=== PATIENT | female | born 1950 | race Caucasian/White ===

== ENCOUNTER → 2018-08-06 | Outpatient (CLI) | payer OTHER | LOC: M.RAD 08-02 10:22 | DX: Z12.31 Encounter for screening mammogram for malignant neoplasm of breast (principal); M85.89 Other specified disorders of bone density and structure, multiple sites; M81.0 Age-related osteoporosis without current pathological fracture; Z90.710 Acquired absence of both cervix and uterus; Z90.722 Acquired absence of ovaries, bilateral ==

== ENCOUNTER → 2018-08-15 | Outpatient (CLI) | payer OTHER | LOC: M.ULTRA 14:48 | DX: N63.10 Unspecified lump in the right breast, unspecified quadrant (principal); N63.41 Unspecified lump in right breast, subareolar; N63.20 Unspecified lump in the left breast, unspecified quadrant ==

== ENCOUNTER → 2018-08-20 | Outpatient (CLI) | payer OTHER ==
--- NOTE | 2018-08-24 12:05 | PATH ---
[address] [address] PATHOLOGY RPT PROCEDURE Name: SOLEDAD ZHAO Room: [facility] DALE Romero#: [id number] Admission: 08/20/18 Date of : 54 Discharge: Report #: [id number] Path Case #: [id number] [facility] Accession Number: [id number] . 01 Material submitted: . RIGHT BREAST . 01 Clinical history: . 0.95 x 0.58 x 0.79 cm subareolar 6:00 . 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 . (TAI:rip; 08/23/2018) QMS/08/23/2018 . 02 Comment: The p63 and p40 immunoperoxidase stains show presence of a myeloepithelial cell layer around the lesion in block A2. . Review/Concur: Dr. Bobby (SKM:rip; 08/23/2018) . 02 Electronically signed: . Gino Lester MD, Pathologist NPI- [id number] . 01 Gross description: . The specimen is received in formalin, labeled "Soledad Zhao, right breast 6:00", are few fibrofatty cores measuring 2.4 x 1.7 x 0.5 cm in aggregate. The specimen is entirely submitted in A1-A3. The specimen was excised at: 0931 on 08/20/18, placed in formalin at 0934 on 08/20/18, formalin exposure: Approximately 14 hours 8 minutes. (SWS; 08/20/2018) SHS/SHS . 02 Pathologist provided ICD-10: D24.1 . 02 CPT . 378030 Specimen Comment: A courtesy copy of this report has been sent to Specimen Comment: [phone], , . Specimen Comment: Report sent to ,DR WHITLOCK / DR BILLINGSLEY Specimen Comment: A duplicate report has been generated [place] [address] PATHOLOGY RPT PROCEDURE Name: SOLEDAD ZHAO Room: [facility]#: [id number] Admission: 08/20/18 Date of : 54 Discharge: Report #: [id number] Path Case #: [id number] Performed at: 01 [facility] [address] [id number] MD Jostin Linda MD Phone: [phone] Performed at: 02 [facility] [address] [id number] MD Gorge Perez MD Phone: [phone]
== END | disposition home or self-care (01) ==
LOC: M.ULTRA 08:24
DX: N63.0 Unspecified lump in unspecified breast (principal); R92.0 Mammographic microcalcification found on diagnostic imaging of breast; I25.10 Atherosclerotic heart disease of native coronary artery without angina pectoris

== ENCOUNTER → 2018-09-21 | Day surgery (SDC) | payer OTHER ==
[~2018-09-21] MED LIST: LIPITOR 20 MG T20 M1 PO; NORCO 5-325 TA1 EACH PO; RECLAST 55 MG/100 M IV; SYNTHROID100 MC1 PO
--- NOTE | ~2018-09-21 | OP ---
[facility] [address] [place] [address] OPERATIVE REPORT Name: ZHAOTJ JOAN Room: [facility].#: [id number] Admission: 09/21/18 Attend Phys: Sheryl Sims MD Discharge: Date of : 54 Report #: [id number] THIS REPORT FOR: //name// CC: Prudence Sims DATE OF SERVICE: 09/21/2018 PREOPERATIVE DIAGNOSIS: Right breast papilloma. POSTOPERATIVE DIAGNOSIS: Right breast papilloma. PROCEDURE: Right breast needle localized excision of papilloma. SURGEON: Sheryl Sims M.D. PURSE SEINING HAND: SARAH Barth. COMPLICATIONS: None. FINDINGS: Incision, 4 cm in length, 2 cm from the nipple, 8 o'clock position, periareolar. Clip in the lesion in the mammographic specimen. INDICATIONS: The patient is a 68-year-old female with imaging, 08/06/2018 and 08/15/2018, showing a 1 cm irregular, lobulated, solid mass at the lower outer subareolar right breast. A biopsy on 08/20/2018 showed intraductal papilloma. We discussed that definitive excision of intraductal papilloma is recommended. Risks and benefits for excision were discussed with the patient and delineated in the H and P and she agreed to proceed. DESCRIPTION OF PROCEDURE: The patient was brought to the operating room, after informed consent had been obtained. She was placed under general anesthesia in the supine position with the right arm extended. Her right breast was prepped and draped in normal sterile manner. Prior to skin incision, a combination of 1% lidocaine plain and 0.5% Marcaine with epinephrine was used. A periareolar skin incision was made with a knife. This was deepened in the subcutaneous tissue using the Bovie electrocautery. Path was created toward the wire entrance site. The wire was identified, grasped with 2 hemostats and brought into the incision. The Bovie electrocautery was then used to excise the lump of tissue surrounding the pathway of the wire and the palpable mass. Once completely removed, it was labeled for orientation purposes and placed in the mammographic specimen tray and handed off for mammographic evaluation. Mammogram did confirm that the clip in the lesion was indeed within the mammographic specimen. The wound bed was examined and noted to be adequately hemostatic. It was copiously irrigated with normal saline. The deeper tissues were reapproximated with interrupted 3-0 Vicryl sutures[place] [address] OPERATIVE REPORT Name: TJ ZHAO Room: [facility].#: [id number] Admission: 09/21/18 Attend Phys: Sheryl Sims MD Discharge: Date of : 54 Report #: [id number] were closed with interrupted 3-0 Vicryl sutures and skin was closed with 4-0 Monocryl in a subcuticular manner. The wound was dressed with Dermabond dressing. The patient tolerated the procedure well. Sponge, lap and needle counts were correct x 2 at the end of procedure. She was transferred to recovery in stable condition. By: 1033 1102Mincallie Sims MD /nt
[2018-09-21 08:06] LABS: HEMATOCRIT 42.1 % (37.0-47.0); HEMOGLOBIN 14.2 gm/dL (12.0-15.0); MCH 30.2 pg (26.0-34.0); MCHC 33.6 g/dL (28.0-37.0); MCV 89.9 fL (80.0-100.0); MPV 9.8 fl. (7.2-11.1); RBC 4.69 mil/uL (4.20-5.00); RDW-CV 13.1 % (10.5-14.5); WBC 10.4 thou/uL (4.0-11.0)
[2018-09-21 08:19] LABS: ALBUMIN 3.9 g/dL (3.4-5.0); CREATININE 0.7 mg/dL (0.6-1.3); TOTAL BILIRUBIN 1.3 mg/dL (<0.1-1.0); TOTAL PROTEIN 7.2 g/dL (6.4-8.2)
--- NOTE | 2018-09-21 09:16 | EKG ---
[place] [address] ELECTROCARDIOGRAM REPORT Name: TJ ZHAO Room: [facility]#: [id number] Admission: 09/21/18 Attend Phys: Sheryl Sims MD Discharge: Date of : 54 Report #: [id number] THIS REPORT FOR: //name// [facility] Test Date: 2018-09-21 Test Time: 07:57:45 Pat Name: TJ ZHAO Department: Room: Gender: F Control Officer: : 1950 Requested By: Sheryl Sims Order Number: [id number] Reading MD: Ac Ross Measurements Intervals [place] Rate: 63 P: -15 TX: 151 QRS: 5 QRSD: 85 T: 22 QT: 411 QTc: 421 Interpretive Statements Sinus rhythm Borderline T wave abnormalities No previous ECG available for comparison Electronically Signed On 09-21-2018 9:16:04 CDT by Ac Ross [email or web address] <ELECTRONICALLY SIGNED> By: Ac Ross MD, [facility] 09/21/18 0916 0757 [id number] Ac Ross MD, FACC /EPI
--- NOTE | 2018-09-25 11:08 | PATH ---
[address] [address] PATHOLOGY RPT PROCEDURE Name: SOLEDAD ZHAO Room: [facility] M.R.#: [id number] Admission: 09/21/18 Date of : 54 Discharge: Report #: [id number] Path Case #: [id number] [facility] Accession Number: [id number] . 01 Material submitted: . RIGHT BREAST PAPILLOMA . 01 Clinical history: . Right breast intraductal papilloma. . 02 Diagnosis: Right breast intraductal papilloma: - Focal residual ductal papilloma in association with changes of prior biopsy, negative for atypia. See comment. (MICHAEL:pit 09/24/2018) QTP/09/24/2018 . 02 Comment: A small focus of residual ductal papilloma is seen at the edge of a prominent biopsy site in A3 and appears completely excised. (MICHAEL:pit 09/24/2018) . 02 Addendum: . Abundant calcifications are noted in associated with the focus of residual papilloma. The original diagnosis remains unchanged. (MICHAEL/db; 09/24/2018) . . Professional services performed by [facility] at [facility], [address] [place] [address]. Technical services performed at [address] [place] [address], [address] [address]. LBQ/09/24/2018 Addendum Electronically Signed by Benny Berger MD, Pathologist . 02 Electronically signed: . Benny Berger MD, Pathologist NPI- [id number] . 01 Gross description: . Received in formalin labeled "Soledad Zhao, right breast papilloma suture bunch long lateral short superior double deep" is an oriented breast lumpectomy specimen which measures 3.2 cm from superior to inferior, 2.1 cm from medial to lateral, and 0.9 cm from superficial to deep. The specimen is inked as follows: Superior-red, inferior-blue, anterior-green, posterior-black, lateral-orange, medial-yellow. The specimen is serially sectioned from superior to inferior into 9 slices. Present within slices 3-9 is a rivera-pink firm possible lesion measuring 2.5 x 1.2 x 0.6 cm. The possible lesion is located 0.7 cm from superior, [place] [id number] PATHOLOGY RPT PROCEDURE Name: SOLEDAD ZHAO [id number] Admission: 09/21/18 Date of : 54 Discharge: Report #: [id number] Path Case #: [id number] grossly abuts inferior, grossly abuts posterior, grossly abuts anterior, grossly abuts lateral, and is 0.3 cm from medial. A possible biopsy site is located in slices 3-4. A biopsy clip is not grossly identified. The uninvolved breast tissue is yellow and lobulated. The specimen is submitted entirely as follows: A1 slice 1, superior margin, perpendicular sections A2 slices 2-3 A3 slice 4 A4 slices 5-6 A5 slices 7-8 A6 slice 9, inferior margin, perpendicular sections The specimen is removed from the patient at 1010 and placed in formalin at 1026 on September 21, 2018. The specimen is removed from formalin at 1850 on September 23, 2018. ([facility]; 09/21/2018) SYC/SYC . 02 Pathologist provided ICD-10: D24.1 . 02 CPT . 337907 Specimen Comment: A courtesy copy of this report has been sent to Specimen Comment: [phone], . Specimen Comment: Report sent to / DR BILLINGSLEY Specimen Comment: A duplicate report has been generated due to demographic updates. Performed at: 01 [facility] [address], [place] [id number] MD Jostin Linda MD Phone: [phone] Performed at: 02 [facility] [address], [place], [place] [id number] MD Benny Berger MD Phone: [phone]
== END | disposition home or self-care (01) ==
LOC: M.SUR 07:24 → M.RAD 08:00 → EDSTATUS 08:00
PROVIDERS: Surgery
DX: D24.1 Benign neoplasm of right breast (principal); E03.9 Hypothyroidism, unspecified; E78.5 Hyperlipidemia, unspecified; F41.9 Anxiety disorder, unspecified; Z88.0 Allergy status to penicillin; Z90.710 Acquired absence of both cervix and uterus; Z98.890 Other specified postprocedural states; Z79.899 Other long term (current) drug therapy; Z82.49 Family history of ischemic heart disease and other diseases of the circulatory system; Z83.3 Family history of diabetes mellitus; Z80.3 Family history of malignant neoplasm of breast; Z80.1 Family history of malignant neoplasm of trachea, bronchus and lung; Z82.3 Family history of stroke

== ENCOUNTER → 2019-03-05 | Outpatient (CLI) | payer OTHER | LOC: M.RAD 09:40 | DX: R92.8 Other abnormal and inconclusive findings on diagnostic imaging of breast (principal) ==

== ENCOUNTER → 2019-07-02 | Outpatient (CLI) | payer OTHER ==
--- NOTE | 2019-07-02 14:26 | EKG ---
[place] [address] ELECTROCARDIOGRAM REPORT Name: LAURA ZHAOLIS Sveta Room: [facility]#: [id number] Admission: 07/02/19 Attend Phys: Takedria. JESSEE Fuentes Discharge: Date of : 54 Report #: [id number] THIS REPORT FOR: //name// [facility] Test Date: 2019-07-02 Test Time: 12:41:09 Pat Name: TJ ZHAO Department: Room: Gender: F Special Services Agent: : 1950 Requested By: Takedria. Nicole Order Number: [id number] Dionna MD: Ac Ross Measurements Intervals [place] Rate: 64 P: -11 [place]: 141 QRS: 10 QRSD: 84 T: 11 QT: 413 QTc: 426 Interpretive Statements Sinus rhythm Compared to ECG 09/21/2018 07:57:45 T-wave abnormality no longer present Electronically Signed On 07-02-2019 14:25:55 CASH REGISTER OPERATOR by Ac Ross [email or web address] <ELECTRONICALLY SIGNED> By: Ac Ross MD, [facility] 07/02/19 1425 1241 1241 Ac Ross MD, FACC /EPI
== END ==
LOC: M.CRD 12:17
DX: R07.9 Chest pain, unspecified (principal)

== ENCOUNTER → 2019-07-17 | Outpatient (CLI) | payer OTHER | LOC: M.ULTRA 09:23 | DX: K80.20 Calculus of gallbladder without cholecystitis without obstruction (principal); R16.0 Hepatomegaly, not elsewhere classified; R94.5 Abnormal results of liver function studies ==

== ENCOUNTER → 2019-07-18 | Outpatient (CLI) | payer OTHER ==
[2019-07-18 11:23] LABS: CREATININE 0.6 mg/dL (0.6-1.3)
== END ==
LOC: M.CT 10:42
PROVIDERS: Family Medicine
DX: K80.20 Calculus of gallbladder without cholecystitis without obstruction (principal); N28.89 Other specified disorders of kidney and ureter; K57.30 Diverticulosis of large intestine without perforation or abscess without bleeding; Z90.710 Acquired absence of both cervix and uterus

== ENCOUNTER → 2019-07-25 | Outpatient (CLI) | payer OTHER ==
[2019-07-25] VITALS (7 sets, daily range): BP systolic 164–215; BP diastolic 80–114
[~2019-07-25] VITALS: Ht 157.5 cm; Wt 57.2 kg
[~2019-07-25] MED LIST changes: +DEXILANT60 MG PO
[2019-07-25 09:47] LABS: ABSOLUTE BASOPHILS 0.1 thou/uL (0.0-0.2); ABSOLUTE MONOCYTES 0.7 thou/uL (0.0-1.2); ABSOLUTE NEUTROPHILS 7.7 thou/uL (1.6-8.1); BASOPHILS 0.7 %; EOSINOPHILS 0.3 %; HEMATOCRIT 40.3 % (37.0-47.0); HEMOGLOBIN 13.7 gm/dL (12.0-15.0); LYMPHOCYTES 19.3 %; MCH 29.8 pg (26.0-34.0); MCV 87.6 fL (80.0-100.0); MONOCYTES 6.3 %; MPV 9.5 fl. (7.2-11.1); NUCLEATED RBCS 0 /100WBC; PLATELET COUNT* 297 thou/uL (150-400); POLYS 73.4 %; RBC 4.59 mil/uL (4.20-5.00); RDW-CV 13.6 % (10.5-14.5); WBC 10.5 thou/uL (4.0-11.0)
[2019-07-25 10:00] LABS: APTT 24.8 Seconds (25.0-31.3); PROTIME 10.5 Seconds (9.20-11.50)
[2019-07-25 10:03] LABS: ALBUMIN 3.9 g/dL (3.4-5.0); CREATININE 0.7 mg/dL (0.6-1.3); POTASSIUM 3.9 mmol/L (3.5-5.1); TOTAL BILIRUBIN 1.5 mg/dL (<0.1-1.0); TOTAL PROTEIN 7.6 g/dL (6.4-8.2)
--- NOTE | 2019-07-31 15:07 | PATH ---
[address] [address] PATHOLOGY RPT PROCEDURE Name: TJ ZHAO Room: [facility] DALE Romero#: [id number] Admission: 07/25/19 Date of : 54 Discharge: Report #: [id number] Path Case #: [id number] [facility] Accession Number: [id number] . 01 Material submitted: . liver - LIVER MASS BX . 01 Clinical history: . Liver mass. . 02 Diagnosis: Liver mass, image guided core biopsies: - ADENOCARCINOMA, MODERATE TO POORLY DIFFERENTIATED, MOST CONSISTENT WITH CHOLANGIOCARCINOMA, INVOLVING LIVER. (SEE COMMENT) . (MICHAEL:rip/mmlorenza; 07/30/2019) QMS 07/31/2019 1020 Local . 02 Comment: Multiple cores show malignancy including areas of gland formation and associated with desmoplastic stroma as well as tumor necrosis. No significant liver parenchyma is present, although scattered non-dysplastic bile ducts are seen within fibrous stroma. A panel of properly controlled immunohistochemical studies are performed on A1 with results as follows: . PAX8: Negative CDX2: Negative CK7: Positive CK20: Negative TTF-1: Negative Estrogen receptor: Negative HepPar1: Negative GATA3: Negative CEAp: Positive CK19: Positive . Properly-controlled Mucicarmine and Alcian blue/PAS stains highlight mucin within lumina formed by the neoplastic cells. . The constellation of clinical and immunohistochemical studies best support cholangiocarcinoma. . Preliminary findings discussed with Dr. Prudence Leiva on the afternoon of 07/30/2019 and final results discussed at approximately 1020 on 07/31/2019. . Reviewed with Dr. Kong Lester [place] [address] PATHOLOGY RPT PROCEDURE Name: TJ ZHAO Room: [facility]#: [id number] Admission: 07/25/19 Date of : 54 Discharge: Report #: [id number] Path Case #: [id number] . (MICHAEL:[facility]; 07/30/2019) . 02 Electronically signed: . Benny Berger MD, Pathologist NPI- [id number] . 01 Gross description: . Received in formalin labeled "Tj Zhao". The container is not labeled with the specimen site. Per the requisition, the specimen site is "liver mass BX". The specimen consists of multiple cylindrical cores of rivera-white soft tissue measuring in aggregate 1.8 x 0.4 x 0.1 cm. The specimen is submitted in cassette A1. ([facility]; 07/25/2019) [facility] 07/25/2019 192 Local . 02 Pathologist provided ICD-10: C22.9 . 02 CPT . 053791, M63136, A42706 Specimen Comment: A courtesy copy of this report has been sent to [phone] Specimen Comment: Report sent to Performed at: [address], [place], [place] [id number] MD Jostin Linda MD Phone: [phone] Performed at: 02 [facility] [address], [place], [place] [id number] MD Benny Berger MD Phone: [phone]
== END | disposition home or self-care (01) ==
LOC: M.LAB 09:00 → M.CT 10:00
PROVIDERS: Family Medicine
DX: C22.9 Malignant neoplasm of liver, not specified as primary or secondary (principal); Z98.890 Other specified postprocedural states; Z90.710 Acquired absence of both cervix and uterus; Z79.899 Other long term (current) drug therapy; Z87.891 Personal history of nicotine dependence